=== PATIENT | female | born 1995 | race Caucasian/White ===

== ENCOUNTER 2018-09-16 12:12 | Emergency (ER) | payer MEDICAID, OTHER ==
[~2018-09-16] VITALS: Ht 162.6 cm; Wt 68.0 kg
[~2018-09-16 12:12] MED LIST: ALBU2.5V8 INH; AZIT250T PO; METH4TAB2 PO; [UNRECOGNIZED DRUG - CODE] MM
[2018-09-16] MEDS ORDERED: AMOX500C PO (12:51)
[2018-09-16] MEDS ORDERED: MELO7.5T29 PO (12:51)
--- NOTE | 2018-09-16 12:51 | PHYS DOC ---
Past History Past Medical History: Asthma Past Surgical History: No Surgical History Smoking: Cigarettes Additional Smoking Information: 1/2 PACK/DAY Alcohol Use: Occasionally Drug Use: None Adult General Chief Complaint Chief Complaint: DENTAL PROBLEM HPI HPI Patient is a 22-year-old female who presents complaining of right upper back and left lower back tooth pain. Both of these have been present for the past couple of months. They have been getting worse over time. The lower left is worse than the upper right. No drainage. The teeth have broken off. Worse with cold. Nothing seems to make the discomfort better. No trauma[] Review of Systems Review of Systems Constitutional: Denies fever or chills [] Eyes: Denies change in visual acuity, redness, or eye pain [] HENT: Denies nasal congestion or sore throat [] Respiratory: Denies cough or shortness of breath [] Cardiovascular: No chest pain or palpitations[] GI: Denies abdominal pain, nausea, vomiting, bloody stools or diarrhea [] : Denies dysuria or hematuria [] Musculoskeletal: Denies back pain or joint pain [] Integument: Denies rash or skin lesions [] Neurologic: Denies headache, focal weakness or sensory changes [] Endocrine: Denies polyuria or polydipsia [] All other systems were reviewed and found to be within normal limits, except as documented in this note. Allergies Allergies Allergies Coded Allergies Type Severity Reaction Last Updated Verified No Known Drug Allergies 10/26/13 No Physical Exam Physical Exam Constitutional: Well developed, well nourished, no acute distress, non-toxic appearance. [] HENT: Normocephalic, atraumatic, bilateral external ears normal, oropharynx moist, no oral exudates, nose normal. Patient's right back tooth upper, #1, mild tenderness to percussion, no gingival edema. No pulp exposed. Patient's left lower posterior tooth, #17, break of the anterior portion. There is significant gingival edema, no drainable abscess noted. No cervical lymphadenopathy. No abnormal masses on palpation of the lingual or buccal surface[] Eyes: PERRLA, EOMI, conjunctiva normal, no discharge. [] Neck: Normal range of motion, no tenderness, supple, no stridor. [] Cardiovascular:Heart rate regular rhythm, no murmur [] Lungs & Thorax: Bilateral breath sounds clear to auscultation [] Abdomen: Not examined[] Skin: Warm, dry, no erythema, no rash. [] Back: No tenderness, no CVA tenderness. [] Extremities: No tenderness, no cyanosis, no clubbing, ROM intact, no edema. [] Neurologic: Alert and oriented X 3, normal motor function, normal sensory function, no focal deficits noted. [] Psychologic: Affect normal, judgement normal, mood normal. [] Current Patient Data Vital Signs Vital Signs Date Time Temp Pulse Resp B/P (MAP) Pulse Ox O2 Delivery O2 Flow Rate FiO2 09/16/18 12:20 97.5 107 20 97 Room Air EKG EKG [] Radiology/Procedures Radiology/Procedures [] Course & Med Decision Making Course & Med Decision Making Pertinent Labs and Imaging studies reviewed. (See chart for details) Medical decision making: This patient appears to have periapical abscess with poor dentition of the 2 teeth. There is no evidence of an abscess that is drainable at this time. Nontoxic patient. We'll attempt treatment with oral outpatient antibiotics. Discussed plan with patient who voiced understanding. Patient was discharged in improved condition.[] Dragon Disclaimer Dragon Disclaimer This electronic medical record was generated, in whole or in part, using a voice recognition dictation system. Departure Departure: Impression: Primary Impression: Dental infection Disposition: 01 HOME, SELF-CARE Condition: IMPROVED Referrals: PCPMARIAH (PCP) Patient Instructions: Dental Abscess Additional Instructions: Follow-up with your primary care physician in 2 days. If you do not have a primary care physician a list of local clinics will be provided for you. Keep your appointment with the oral surgeon. Take the medication as prescribed. Return to the ER if worsening pain or any other concerns. Scripts Meloxicam (MELOXICAM) 7.5 Mg Tablet 7.5 MG PO DAILY for PAIN, #20 TAB Prov: TOMMY BOSTON DO 09/16/18 Amoxicillin (AMOXICILLIN) 500 Mg Capsule 1 CAP PO TID for dental infection, #30 CAP Prov: TOMMY BOSTON DO 09/16/18 TOMMY BOSTON DO Sep 16, 2018 12:51
[2018-09-16 12:56] VITALS: BP 108/55
== END 2018-09-16 12:58 | disposition home or self-care (01) ==
LOC: ER 12:12
DX: K04.7 Periapical abscess without sinus (principal); J45.909 Unspecified asthma, uncomplicated; F17.210 Nicotine dependence, cigarettes, uncomplicated
CPT/HCPCS: 99283

== ENCOUNTER 2019-02-19 12:16 | Emergency (ER) | payer OTHER ==
[~2019-02-19] VITALS: Ht 160 cm; Wt 71.7 kg
[~2019-02-19 12:16] MED LIST changes: +AMOX500C PO; +MELO7.5T29 PO
[2019-02-19 13:16] LABS: BASO % 0 % (0-3); EOS % 0 % (0-3); HEMATOCRIT 42.6 % (36.0-47.0); HEMOGLOBIN 14.3 g/dL (12.0-15.5); LYMPH # 0.8 x10^3/uL (1.0-4.8); LYMPH % 14 % (24-48); MEAN CORPUSCULAR HEMOGLOBIN 31 pg (25-35); MEAN CORPUSCULAR HGB CONC 34 g/dL (31-37); MEAN CORPUSCULAR VOLUME 92 fL (79-100); MONO # 0.7 x10^3/uL (0.0-1.1); MONO % 13 % (0-9); NEUT # 4.2 x10^3uL (1.8-7.7); NEUT % 73 % (31-73); PLATELET COUNT 156 x10^3/uL (140-400); RED BLOOD COUNT 4.62 x10^6/uL (3.50-5.40); RED CELL DISTRIBUTION WIDTH 12.6 % (11.5-14.5); WHITE BLOOD COUNT 5.7 x10^3/uL (4.0-11.0)
[2019-02-19] MEDS ORDERED: KETOROLAC 30 MG/ML VIAL. IV ONE (13:20)
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
[2019-02-19 13:50] LABS: ALBUMIN 3.9 g/dL (3.4-5.0); ALBUMIN/GLOBULIN RATIO 1.2 (1.0-1.7); CALCIUM 8.4 mg/dL (8.5-10.1); CREATININE 0.6 mg/dL (0.6-1.0); GFR 121.8; POTASSIUM 3.3 mmol/L (3.5-5.1); TOTAL BILIRUBIN 0.3 mg/dL (0.2-1.0); TOTAL PROTEIN 7.2 g/dL (6.4-8.2)
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
--- NOTE | 2019-02-19 15:09 | RAD ---
Right lower extremity venous Doppler ultrasound History: Right leg pain. Comparison: None. Procedure: Color flow Doppler, Doppler spectral analysis, and 2D images are obtained with and without compression in the area of the common femoral vein, superficial femoral vein - femoral vein junction, main femoral vein (superficial femoral vein) and popliteal vein. Veins of the proximal calf are also imaged. Findings: There is normal color flow, augmentation, and compressibility of all visualized vein segments. No evidence of deep venous thrombus is present. Left common femoral vein is also noted to be patent. IMPRESSION: No evidence of right lower extremity deep venous thrombosis. Electronically signed by: Garrett Miller MD (02/19/2019 3:06 PM) [facility]
[2019-02-19] MEDS ORDERED: HYDR-2765 PO (15:58)
[2019-02-19] MEDS ORDERED: METH4TAB2 PO (15:58)
[2019-02-19] MEDS ORDERED: INDO50CA5 PO (15:58)
[2019-02-19 16:00] VITALS: BP 99/60
== END 2019-02-19 16:08 | disposition home or self-care (01) ==
LOC: ER 12:16
DX: S79.911A Unspecified injury of right hip, initial encounter (principal); R07.89 Other chest pain; M79.651 Pain in right thigh; J45.909 Unspecified asthma, uncomplicated; F17.210 Nicotine dependence, cigarettes, uncomplicated; V89.2XXA Person injured in unspecified motor-vehicle accident, traffic, initial encounter; Y93.89 Activity, other specified; Y92.89 Other specified places as the place of occurrence of the external cause; Y99.8 Other external cause status
CPT/HCPCS: 36415; 72192; 73502; 80053; 81025; 85025; 85379; 93971; 96374; 99285; J1885

== ENCOUNTER 2019-02-25 13:24 | Emergency (ER) | payer OTHER ==
[~2019-02-25] VITALS: Ht 160 cm; Wt 71.7 kg
[~2019-02-25 13:24] MED LIST changes: +HYDR-2765 PO; +INDO50CA5 PO
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
[2019-02-25] MEDS ORDERED: KETOROLAC 15 MG/ML VIAL. IV ONE (14:00)
[2019-02-25] MEDS ORDERED: IOHEXOL 350 MG/ML 100 ML VIAL. IV ONE (14:00)
[2019-02-25] MEDS ORDERED: IV NORMAL SALINE 1,000ML 1,000 ML IV SCH (14:00)
[2019-02-25] MEDS ORDERED: IPRATRPIUM/ALBUTEROL 0.5/2.5MG 3 ML NEBU. NEB ONE (14:00)
[2019-02-25 14:17] LABS: BASO # 0.1 x10^3/uL (0.0-0.2); BASO % 1 % (0-3); EOS # 0.1 x10^3/uL (0.0-0.7); EOS % 1 % (0-3); HEMATOCRIT 36.9 % (36.0-47.0); HEMOGLOBIN 12.7 g/dL (12.0-15.5); LYMPH # 1.9 x10^3/uL (1.0-4.8); LYMPH % 20 % (24-48); MEAN CORPUSCULAR HEMOGLOBIN 32 pg (25-35); MEAN CORPUSCULAR HGB CONC 34 g/dL (31-37); MEAN CORPUSCULAR VOLUME 92 fL (79-100); MONO % 10 % (0-9); NEUT # 6.6 x10^3uL (1.8-7.7); NEUT % 68 % (31-73); PLATELET COUNT 307 x10^3/uL (140-400); RED BLOOD COUNT 4.02 x10^6/uL (3.50-5.40); RED CELL DISTRIBUTION WIDTH 12.7 % (11.5-14.5); WHITE BLOOD COUNT 9.7 x10^3/uL (4.0-11.0)
[2019-02-25 14:36] LABS: ALBUMIN 3.3 g/dL (3.4-5.0); ALBUMIN/GLOBULIN RATIO 0.9 (1.0-1.7); CALCIUM 8.5 mg/dL (8.5-10.1); CREATININE 0.7 mg/dL (0.6-1.0); MAGNESIUM 1.9 mg/dL (1.8-2.4); POTASSIUM 3.6 mmol/L (3.5-5.1); TOTAL BILIRUBIN 0.2 mg/dL (0.2-1.0)
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
[2019-02-25 15:14] LABS: BILIRUBIN,URINE NEG (NEG); CLARITY,URINE CLEAR; COLOR,URINE STRAW; GLUCOSE,URINE NEG (NEG); NITRITE,URINE NEG (NEG); UROBILINOGEN,URINE 0.2 mg/dL (0.2 mg/dL)
[2019-02-25 15:15] LABS: BACTERIA,URINE 0 /HPF (0-FEW); SQUAMOUS EPITHELIAL CELL,UR OCC /LPF
[2019-02-25 15:54] LABS: U PREG PATIENT NEGATIVE (NEG)
[2019-02-25] MEDS ORDERED: MELO7.5T29 PO (16:04)
[2019-02-25] MEDS ORDERED: ALBU2.5V8 IH (16:04)
[2019-02-25 16:20] VITALS: BP 133/65
--- NOTE | 2019-02-25 17:18 | EKG ---
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
== END 2019-02-25 16:20 | disposition home or self-care (01) ==
LOC: ER 13:24
DX: S29.8XXA Other specified injuries of thorax, initial encounter (principal); J45.909 Unspecified asthma, uncomplicated; F17.210 Nicotine dependence, cigarettes, uncomplicated; V89.2XXA Person injured in unspecified motor-vehicle accident, traffic, initial encounter; Y93.89 Activity, other specified; Y92.488 Other paved roadways as the place of occurrence of the external cause; Y99.8 Other external cause status
CPT/HCPCS: 36415; 71275; 80053; 81001; 81025; 83690; 83735; 83880; 84484; 85025; 85379; 85610; 85730; 87086; 93005; 94640; 96374; 99285; J1885; J7620; Q9967; J7030

== ENCOUNTER 2019-11-11 09:57 | Emergency (ER) | payer OTHER ==
[~2019-11-11] VITALS: Ht 160 cm; Wt 71.0 kg
[~2019-11-11 09:57] MED LIST changes: +ALBU2.5V8 IH; +INDO50CA15 PO; -INDO50CA5 PO
[2019-11-11 10:10] VITALS: BP 140/69
[2019-11-11] MEDS ORDERED: NAPR-682 PO (10:22)
[2019-11-11] MEDS ORDERED: AMOX500C PO (10:22)
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
== END 2019-11-11 10:37 | disposition home or self-care (01) ==
LOC: ER 09:57
DX: K02.9 Dental caries, unspecified (principal); J45.909 Unspecified asthma, uncomplicated; F17.210 Nicotine dependence, cigarettes, uncomplicated
CPT/HCPCS: 99283

== ENCOUNTER 2020-02-28 00:23 | Emergency (ER) | payer OTHER ==
[~2020-02-28] VITALS: Ht 160 cm; Wt 73.0 kg
[~2020-02-28 00:23] MED LIST changes: +NAPR-682 PO
[2020-02-28] MEDS ORDERED: SULF1TAB24 PO (01:05)
--- NOTE | 2020-02-28 01:06 | PHYS DOC ---
Past History Past Medical History: Asthma Past Surgical History: No Surgical History Smoking: Cigarettes Alcohol Use: Occasionally Drug Use: None General Adult EDM: Chief Complaint: abscess HPI: HPI: 24-year-old female presents with abscess in her left armpit. Patient has had an area here for about 2 weeks. Over the last couple days it is gotten bigger and more painful. She denies fever or chills. It is red, swollen and uncomfortab le. She just wants to make sure she does not have an infection. She has no history of skin infections or MRSA. She denies allergies to any medications. Review of Systems: Review of Systems: Constitutional: Denies fever or chills Eyes: Denies change in visual acuity HENT: Denies nasal congestion or sore throat Respiratory: Denies cough or shortness of breath Cardiovascular: Denies chest pain or edema GI: Denies abdominal pain, nausea, vomiting, bloody stools or diarrhea : Denies dysuria Musculoskeletal: Denies back pain or joint pain Integument: Abscess left axilla Neurologic: Denies headache, focal weakness or sensory changes Endocrine: Denies polyuria or polydipsia Lymphatic: Denies swollen glands Psychiatric: Denies depression or anxiety Heart Score: Risk Factors: Risk Factors: DM, Current or recent (<one month) smoker, HTN, HLP, family history of CAD, obesity. Risk Scores: Score 0 - 3: 2.5% MACE over next 6 weeks - Discharge Home Score 4 - 6: 20.3% MACE over next 6 weeks - Admit for Clinical Observation Score 7 - 10: 72.7% MACE over next 6 weeks - Early Invasive Strategies Allergies: Allergies: Allergies Coded Allergies Type Severity Reaction Last Updated Verified No Known Drug Allergies 10/26/13 No Physical Exam: PE: Constitutional: Well developed, well nourished, no acute distress, non-toxic appearance. [] HENT: Normocephalic, atraumatic, bilateral external ears normal, oropharynx moist, no oral exudates, nose normal. [] Eyes: PERRLA, EOMI, conjunctiva normal, no discharge. [] Neck: Normal range of motion, no tenderness, supple, no stridor. [] Cardiovascular:Heart rate regular rhythm, no murmur [] Lungs & Thorax: Bilateral breath sounds clear to auscultation [] Abdomen: Bowel sounds normal, soft, no tenderness, no masses, no pulsatile ma sses. [] Skin: 2 cm x 4 cm cellulitis with central fluctuance consistent with abscess of the left axilla. [] Back: No tenderness, no CVA tenderness. [] Extremities: No tenderness, no cyanosis, no clubbing, ROM intact, no edema. [] Neurologic: Alert and oriented X 3, normal motor function, normal sensory function, no focal deficits noted. [] Psychologic: Affect normal, judgement normal, mood normal. [] EKG: EKG: [] Radiology/Procedures: Radiology/Procedures: [] Course & Med Decision Making: Course & Med Decision Making Pertinent Labs and Imaging studies reviewed. (See chart for details) The patient had an abscess which I drained. See incision and drainage note below. I will place her on Bactrim DS for 7 days. We will give the first dose in the emergency room. She is stable for discharge at this time. [] Dragon Disclaimer: Dragon Disclaimer: This electronic medical record was generated, in whole or in part, using a voice recognition dictation system. Incision and Drainage Indication: Abscess left axilla Procedure: I obtained verbal consent from the patient for incision and drainage of her left axillary abscess. The skin was cleaned with alcohol. She was anesthetized with 1 cc of 1% lidocaine. Once the skin was anesthetized, I made a 4 mm incision with a #11 blade. Purulent material mixed with blood was expressed. A wound culture was sent. I expressed a moderate amount of pus from the wound. I further explored it with a sterile Q-tip to break up loculations. More purulent material was expressed. The abscess was less than one third the size after drainage. No packing was placed. I placed the patient on antibiotics and give the first dose in the ED. The patient tolerated the procedure well Complications: None Departure Departure: Impression: Primary Impression: Abscess of left axilla Disposition: HOME/RESIDENCE PRIOR TO ADM Condition: STABLE Referrals: BAUDILIO MAX MD (PCP) Patient Instructions: Abscess, [id number] Scripts Sulfamethoxazole/Trimethoprim (BACTRIM DS TABLET) 1 Each Tablet 1 TAB PO BID for abscess for 7 Days, #14 TAB 0 Refills Prov: AMANDA BOB DO 02/28/20 Justification of Admission: Justification of Admission: Justification of Admission Dx: N/A AMANDA BOB DO Feb 28, 2020 01:06
[2020-02-28 01:20] VITALS: BP 140/56
[2020-02-28] MEDS ORDERED: SMZ/TMP 800/160MG TABLET. PO ONE (01:30)
== END 2020-02-28 01:20 | disposition home or self-care (01) ==
LOC: ER 00:23
DX: L02.412 Cutaneous abscess of left axilla (principal); J45.909 Unspecified asthma, uncomplicated; F17.210 Nicotine dependence, cigarettes, uncomplicated
CPT/HCPCS: 10060; 87070; 99283

== ENCOUNTER 2021-02-26 15:58 | Emergency (ER) | payer OTHER ==
[~2021-02-26] VITALS: Ht 160 cm; Wt 76.0 kg
[~2021-02-26 15:58] MED LIST changes: +SULF1TAB24 PO
[2021-02-26 16:25] VITALS: BP 128/56
--- NOTE | 2021-02-26 17:00 | PHYS DOC ---
Past History Past Medical History: Asthma (CHEN PORTER APRN) Past Surgical History: No Surgical History (CHEN PORTER APRN) Smoking: Cigarettes Alcohol Use: Occasionally Drug Use: None (CHEN PORTER APRN) General Adult HPI: HPI: Patient is a 25-year-old female who presents to the ER for shortness of breath, nasal drainage, cough, diarrhea that started 2 days ago. Patient has a positive Covid exposure. Patient denies nausea, vomiting decreased appetite. (CHEN PORTER APRN) Review of Systems: Review of Systems: 14 body systems of the review of systems have been reviewed. See HPI for pertinent positive and negative responses, otherwise all other systems are negative, nonpertinent or noncontributory (CHEN PORTER APRN) Allergies: Allergies: Allergies Coded Allergies Type Severity Reaction Last Updated Verified No Known Drug Allergies 10/26/13 No (CHEN PORTER APRN) Physical Exam: PE: Constitutional: Well developed, well nourished, no acute distress, non-toxic appearance. [] HENT: Normocephalic, atraumatic, bilateral external ears normal, oropharynx moist, no oral exudates, nose normal. [] Eyes: PERRL, EOMI, conjunctiva normal, no discharge. [] Neck: Normal range of motion, no stridor Cardiovascular:Heart rate regular rhythm, no murmur [] Lungs & Thorax: Bilateral breath sounds clear to auscultation [] Abdomen: Bowel sounds normal, soft, no tenderness, no masses, no pulsatile masses. [] Skin: Warm, dry, no erythema, no rash. [] Back: Normal range of motion Extremities: No tenderness, no cyanosis, no clubbing, ROM intact, no edema. [] Neurologic: Alert and oriented X 3, normal motor function, normal sensory function, no focal deficits noted. [] Psychologic: Affect normal, judgement normal, mood normal. [] (CHEN PORTER APRN) EKG: EKG: [] (CHEN PORTER APRN) Radiology/Procedures: Radiology/Procedures: [] (CHEN PORTER APRN) Heart Score: C/O Chest Pain: No Risk Factors: Risk Factors: DM, Current or recent (<one month) smoker, HTN, HLP, family history of CAD, obesity. Risk Scores: Score 0 - 3: 2.5% MACE over next 6 weeks - Discharge Home Score 4 - 6: 20.3% MACE over next 6 weeks - Admit for Clinical Observation Score 7 - 10: 72.7% MACE over next 6 weeks - Early Invasive Strategies (CHEN PORTER APRN) Course & Med Decision Making: Course & Med Decision Making Pertinent Labs and Imaging studies reviewed. (See chart for details) [] This is a 25-year-old female being seen for multiple complaints including shortness of breath, nasal drainage, cough, diarrhea. Patient was Covid tested and will receive her results in 2 days. Patient will be notified of those results when they become available. Patient advised to self isolate until she receives these results. Patient advised to take Mucinex or Sudafed for nasal congestion or drainage. She is advised to take Delsym for her cough and Imodium for her diarrhea. Patient is in no acute distress, lung sounds clear, vital signs stable. (CHEN PORTER APRN) Course & Med Decision Making I oversaw on the above date of service of this patient. This patient was evaluated, examined, treated, and dispositioned from the emergency department by the mid-level practitioner. Although I was working at the time , no assistance was requested. Electronically signed, Dasha Carmona DO (DASHA CARMONA DO) Silvia Disclaimer: Silvia Disclaimer: This electronic medical record was generated, in whole or in part, using a voice recognition dictation system. (CHEN PORTER APRN) Departure Departure: Impression: Primary Impression: Person under investigation for COVID-19 Disposition: 01 HOME / SELF CARE / HOMELESS Condition: GOOD Referrals: BAUDILIO MAX MD (PCP) Patient Instructions: Cough, Adult Additional Instructions: You were seen in the ER for shortness of breath, nasal drainage, cough, and diarrhea. It is likely that you do have a COVID-19 viral infection especially given your positive exposure. You were tested in the ER and will be notified of those results in approximately 2 to 3 days. Please self isolate until you receive these results. You can take Tylenol/ibuprofen for any pain or fevers. For your nasal drainage/congestion you can take Mucinex or Sudafed [id number]. Delsym is helpful for cough. If you continue to have diarrhea you can take Imodium. If you develop shortness of breath, chest pain, high fevers refractory to treatment, lethargy, decreased appetite, and lightheadedness please return to the ER immediately. Please follow-up with your primary care provider tomorrow regarding your ER visit. EMERGENCY DEPARTMENT GENERAL DISCHARGE INSTRUCTIONS Thank you for coming to [facility] (ED) today and trusting us with you care. We trust that you had a positivie experience in our Emergency Department. If you wish to speak to the department management, you may call the director at . YOUR FOLLOW UP INSTRUCTIONS ARE FOLLOWS: 1. Do you have a private Doctor? If you do not have a private doctor, please ask for a resource list of physicians or clinics that may be able to assist you with follow up care. 2. The Emergency Physician has interpreted your x-rays. The X-Ray specialist will also review them. If there is a change in the findings, you will be notified in 48 hours when at all possible. 3. A lab test or culture has been done, your results will be reviewed and you will be notified if you need a change in treatment. ADDITIONAL INSTRUCTIONS AND INFORMATION: 1. Your care today has been supervised by a physician who is specially trained in emergency care. Many problems require more than one evaluation for a complete diagnosis and treatment. We recommend that you schedule your follow up appointment as recommended to ensure complete treatment of you illness or injury. If you are unable to obtain follow up care and continue to have a problem, or if your condition worsens, we recommend that you return to the ED. 2. We are not able to safely determine your condition over the phone nor are we able to give sound medical advice over the phone. For these safety reasons, if you call for medical advice we will ask you to come to the ED for further evaluation. 3. If you have any questions regarding these discharge instructions please call the ED at [phone]. SAFETY INFORMATION: In the interest of safety, wellness, and injury prevention; we encourage you to wear your sealbelt, if you smoke; quite smoking, and we encourage family to use a protective helmet for bicycling and other sporting events that present an increased risk for head injury. IF YOUR SYMPTOMS WORSEN OR NEW SYMPTOMS DEVELOP, OR YOU HAVE CONCERNS ABOUT YOUR CONDITION; OR IF YOUR CONDITION WORSENS WHILE YOU ARE WAITING FOR YOUR FOLLOW UP APPOINTMENT; EITHER CONTACT YOUR PRIMARY CARE DOCTOR, THE PHYSICIAN WHOSE NAME AND NUMBER YOU WERE GIVEN, OR RETURN TO THE ED IMMEDIATELY. CHEN PORTER APRN Feb 26, 2021 17:00 DASHA CARMONA DO Mar 02, 2021 14:54
== END 2021-02-26 17:55 | disposition home or self-care (01) ==
LOC: ER 15:58
DX: R06.02 Shortness of breath (principal); R05 Cough; R19.7 Diarrhea, unspecified; J45.909 Unspecified asthma, uncomplicated; Z20.822 Contact with and (suspected) exposure to COVID-19
CPT/HCPCS: 99283; C9803; U0003

== ENCOUNTER 2021-10-26 20:00 | Emergency (ER) | payer OTHER ==
[~2021-10-26] VITALS: Ht 160 cm; Wt 80.0 kg
[2021-10-26 20:00] VITALS: BP 113/83
--- NOTE | 2021-10-26 20:17 | PHYS DOC ---
Past History Past Medical History: Asthma Additional Past Medical Histor: pre ecclampsia Past Surgical History: No Surgical History Smoking: Cigarettes Alcohol Use: Rarely Drug Use: None Adult General Chief Complaint Chief Complaint: VAGINAL BLEEDING HPI HPI Patient is a 26-year-old female who presents in an approximate gestational age of about 5 to 6 months per an ultrasound done 3 months ago, with a chief complaint of vaginal bleeding/spotting over the last day and some lower abdominal cramping and nausea. Denies any recent traumas, travels, illnesses, fevers, chest pain, shortness of breath, vomiting, dysuria, hematuria, diarrhea or blood in the stool. States she usually feels the baby move once or twice a day and did feel it move earlier in the day but has not felt it since then. States she was having some cramping earlier in the day and took 600 mg of ibuprofen. Review of Systems Review of Systems Review of systems otherwise unremarkable except noted in HPI Allergies Allergies Allergies Coded Allergies Type Severity Reaction Last Updated Verified No Known Drug Allergies 02/26/21 No Physical Exam Physical Exam Constitutional: Well developed, well nourished, no acute distress, non-toxic appearance. [] HENT: Normocephalic, atraumatic, bilateral external ears normal, oropharynx moist, no oral exudates, nose normal. [] Eyes: conjunctiva normal, no discharge. [] Neck: Normal range of motion, no tenderness, supple, no stridor. [] Cardiovascular:Heart rate regular rhythm, no murmur [] Lungs & Thorax: Bilateral breath sounds clear to auscultation [] Abdomen: soft, no tenderness, no masses, no pulsatile masses. Bedside ultrasound showed intrauterine fetus but unable to establish a heart rate [] Skin: Warm, dry, no erythema, no rash. [] Back: No tenderness, no CVA tenderness. [] Extremities: No tenderness, no cyanosis, no clubbing, ROM intact, no edema. [] Neurologic: Alert and oriented X 3, normal motor function, normal sensory function, able to sit, stand and walk, no focal deficits noted. [] Psychologic: Affect normal, judgement normal, mood normal. [] EKG EKG [] Radiology/Procedures Radiology/Procedures [] Heart Score C/O Chest Pain: No Risk Factors: Risk Factors: DM, Current or recent (<one month) smoker, HTN, HLP, family history of CAD, obesity. Risk Scores: Risk Factors: DM, Current or recent (<one month) smoker, HTN, HLP, family history of CAD, obesity. Course & Med Decision Making Course & Med Decision Making Patient is a 26-year-old female, who presents with vaginal bleeding at approximately 6 months gestation with some abdominal cramping Vital signs notable for sinus tachycardia. Physical exam noted above. Given Tylenol and Benadryl. Other laboratory analysis not concerning. Beta-hCG 111 which is significantly lower than it should be at her stage POC ultrasound with no viable heart rate. Transvaginal ultrasound showing estimated gestational age from last LMP at 21 weeks and 5 days but measuring 15 weeks and 6 days with no heart tones noted suggesting demise Discussed all findings with family. Discussed findings with [facility] RESEARCH COORDINATOR Dr. Goldstein and Dr Boyle. Dr. Goldstein stated that if we did not feel comfortable sending her home she could come over to [facility] the L&D unit. stated that she wanted her to go to the emergency department where she would come and see her and discuss neck steps in evaluation and treatment. Offered to transfer patient by ambulance to [facility], but patient and family stated they appreciated it but would prefer to go private vehicle and would go straight there for continued MARKETING RESEARCH COORDINATOR evaluation, treatment and discussions on treatment moving forward. Family grateful, verbalized understanding and agreed with plan of transfer. [] Dragon Disclaimer Dragon Disclaimer This electronic medical record was generated, in whole or in part, using a voice recognition dictation system. Departure Departure: Impression: Primary Impression: demise before 22 weeks with retention of fetus Disposition: 02 SHORT TERM HOSPITAL Admitting Physician: Other Condition: STABLE Referrals: BAUDILIO MAX MD (PCP) OLIVIER GUEVARA MD Oct 26, 2021 20:16
[2021-10-26] MEDS ORDERED: diphenhydrAMINE HCL 25 MG CAPSULE PO ONE (21:15)
[2021-10-26] MEDS ORDERED: ACETAMINOPHEN 500 MG TABLET PO ONE (21:15)
[2021-10-26 21:31] LABS: BACTERIA,URINE FEW /HPF (0-FEW); CLARITY,URINE CLEAR; COLOR,URINE YELLOW; GLUCOSE,URINE NEG (NEG); NITRITE,URINE NEG (NEG); SQUAMOUS EPITHELIAL CELL,UR MOD /LPF; UROBILINOGEN,URINE 0.2 mg/dL (0.2 mg/dL)
[2021-10-26 22:20] LABS: CALCIUM 8.7 mg/dL (8.5-10.1); CREATININE 0.4 mg/dL (0.6-1.0); GFR 190.1; POTASSIUM 3.4 mmol/L (3.5-5.1)
[2021-10-26 22:29] LABS: BASO % 0 % (0-3); EOS % 1 % (0-3); HEMATOCRIT 37.1 % (36.0-47.0); HEMOGLOBIN 12.5 g/dL (12.0-15.5); LYMPH # 1.5 x10^3/uL (1.0-4.8); LYMPH % 17 % (24-48); MEAN CORPUSCULAR HEMOGLOBIN 30 pg (25-35); MEAN CORPUSCULAR HGB CONC 34 g/dL (31-37); MEAN CORPUSCULAR VOLUME 88 fL (79-100); MONO # 0.5 x10^3/uL (0.0-1.1); MONO % 6 % (0-9); NEUT # 6.8 x10^3uL (1.8-7.7); NEUT % 77 % (31-73); PLATELET COUNT 242 x10^3/uL (140-400); RED CELL DISTRIBUTION WIDTH 12.6 % (11.5-14.5); WHITE BLOOD COUNT 8.8 x10^3/uL (4.0-11.0)
--- NOTE | 2021-10-26 22:39 | RAD ---
EXAM: US OB Limited CLINICAL HISTORY: Reason: vag bleeding, pain / Spl. Instructions: called US call tech [id number] / History: . COMPARISON: None available. TECHNIQUE: Limited transabdominal ultrasound of the uterus was performed. FINDINGS: NUMBER: Single POSITION: cephalic PLACENTA: Location: Fundal Placentation: Normal. ANATOMY: HEART RATE: No heart tones identified. COMMENTS: None Current measurements are: BPD - 2.90 = 15w2d HC -10.98 = 15 weeks 2 days AC - 11.26 (cm) = 17w1d FL - 1.95 cm = 15 weeks 6 days HISTORICAL DATES Last menstrual period: 05/27/2021 CALCULATED DATES EGA (LMP): 21 weeks 5 days ESTEVAN (LMP): 03/03/2022 EGA (US): 15w6d ESTEVAN (US): 04/13/2022 IMPRESSION: Single intrauterine fetus with no heart tones identified. Findings are concerning for dem ise. FOR INTERNAL CODING PURPOSES Critical result: Findings discussed with OLIVIER GUEVARA MD at 10/26/2021 10:35 PM. RESULT CODE: (C) Electronically signed by: Tiffanie Franco MD (10/26/2021 10:37 PM) [email or web address]
== END 2021-10-27 00:02 | disposition short-term general hospital (02) ==
LOC: ER 20:00
DX: O36.4XX0 Maternal care for intrauterine death, not applicable or unspecified (principal); O99.512 Diseases of the respiratory system complicating pregnancy, second trimester; J45.909 Unspecified asthma, uncomplicated; O99.332 Smoking (tobacco) complicating pregnancy, second trimester; Z3A.21 21 weeks gestation of pregnancy
CPT/HCPCS: 36415; 76815; 80048; 81001; 84702; 85025; 87086; 99285; Q0163